=== PATIENT | female | born 1940 | race African-American/Black ===

== ENCOUNTER 2018-09-22 02:29 | Inpatient (IN) | payer BC ==
[~2018-09-22] VITALS: Ht 396.2 cm; Wt 56.0 kg
[2018-09-22 02:48] VITALS: Ht 396.2 cm; Wt 56.0 kg
--- NOTE | 2018-09-22 03:00 | NUR ---
PT BIBA DUE TO C/C INCREASING SOB. PT IS AAOX4. RESP EVEN AND RAPID. PT IS SOB WHEN SPEAKING. PERIODS OF REST IN BETWEEN WORDS. PER MEDIC PT CALLED 911 DUE TO INCREASING SOB X3 DAYS. PT STS SHE WAS GOING TO GO TO HER PCP TOMORROW AM BUT COULD NOT WAIT DUE TO SOB AT HOME TONIGHT. HX COPD. PT STS HAD NO RELIEF WHEN TAKING HER INHALER AT HOME. PT WAS PLACED ON CIPRO FOR SINUS INFECTION AND STS SHE BELIEVES THE MEDICATION MADE HER WORSE. PER MEDIC UPON ARRIVAL TO PTS HOME PT RR 36. DENIES HOME O2 USE. GIVEN ALBUTEROL AND ATROVENT EN ROUTE TO HOSPITAL AND PLACED ON CPAP IN AMBULANCE WITH O2 SAT 99-100%. PT TRANSITIONED TO 4L NC UPON ARRIVAL WITH O2 SAT 99%. CONNECTED TO MONITOR. DR LANDAVERDE AT BEDSIDE FOR MSE.
--- NOTE | 2018-09-22 03:08 | NUR ---
LAB AT BEDSIDE.
--- NOTE | 2018-09-22 03:08 | NUR ---
X-RAY AT BEDSIDE FOR CXR.
[2018-09-22 03:30] LABS: BASOPHIL % 1.2 % (0-2); PLATELET COUNT 225 x10^3mcL (130-400)
[2018-09-22 03:31] LABS: RED CELL DISTRIBUTION WIDTH 15.4 % (11.5-14.5)
[2018-09-22 03:59] LABS: CARBON DIOXIDE 27.7 mmol/L (21-32); CHLORIDE SERUM 101 mmol/L (98-107); CREATININE SERUM 0.7 mg/dL (0.6-1.0); GLUCOSE SERUM 128 mg/dL (74-106); POTASSIUM SERUM 3.7 mmol/L (3.5-5.1); SODIUM SERUM 141 mmol/L (136-145)
[2018-09-22 04:05] LABS: ALBUMIN 3.9 g/dL (3.4-5.0); ALKALINE PHOSPHATASE 78 U/L (46-116); ALT/SGPT 46 U/L (14-59); AST/SGOT 47 U/L (15-37); BILIRUBIN TOTAL 0.5 mg/dL (0.20-1.00); CHOLESTEROL 198 mg/dL (<200); TOTAL PROTEIN, SERUM 7.6 g/dL (6.4-8.2)
--- NOTE | 2018-09-22 04:06 | NUR ---
PT STS "I FEEL SO MUCH BETTER RIGHT NOW. I CAN BREATHE BETTER AND ACTUALLY FINISH MY SENTENCES." AUDIBLE WHEEZING DECREASED. PT REMAINS ON 2L NC WITH 02 SAT 97%. RESP EVEN AND MINORLY LABORED. PT REMAINS TACHYPNIC AT RR 29. WILL CONTINUE TO MONITOR.
[2018-09-22 04:08] LABS: HDL CHOLESTEROL 85 mg/dL (40-60)
--- NOTE | 2018-09-22 06:37 | NUR ---
PT APPEARS TO BE SLEEPING COMFORTABLY. RR 26. REMAINS ON 2L NC, RESP EVEN. AWAITING ADMITTING BED TO TELE. NO BED AVAILABLE UNTIL CHANGE OF SHIFT. WILL CONTINUE TO MONITOR.
[2018-09-22 06:45] LABS: MAGNESIUM 2.3 mg/dL (1.8-2.4); PHOSPHOROUS 5.2 mg/dL (2.5-4.9)
[2018-09-22 06:51] LABS: CHOLESTEROL/HDL RATIO 2.3
[2018-09-22 07:19] LABS: FREE T4 1.12 ng/dL (0.76-1.46); FREE THYROXINE INDEX 3.3 ug/dL (1.4-4.5); T4(THYROXINE) 9.4 ug/dL (4.7-13.3)
--- NOTE | 2018-09-22 07:23 | NUR ---
REPORT CALLED AND GIVEN TO LIANNE KAYE.
[2018-09-22 07:34] LABS: T3 TOTAL 1.05 ng/mL
--- NOTE | 2018-09-22 07:45 | NUR ---
ADMITTED PT FROM ED WITH DX COPD. RECEIVED PT IN BED A/A/OX4. PT WAS VISIBLE SOB AFTER TRANSFER. NOTED PT BECAME SOB WITH INCREASE OF RESPIRATORY AFTER SPEAKING. INSTRUCTED TO ANSWER IN SHORT FRASES. O2 SAT 97% ON O2 AT 2L/MIN VIA NC. PLACED ON TELE #[address] HR 106. DENIES ANY CP/PRESSURE AT THIS TIME. NO EDEMA NOTED. IV TO LFA WITH NS AT 150ML. AMBULATORY WITH ASSISTACE, REPORTS DECREASE IN ACTIVITY TOLERANCE D/T SOB AND WEAKNESS. PT USES A CANE OR WALKER AT HOME. VOIDING FREELY, REPORTS MILD FREQUENCY. ORIENTED TO ROOM AND CALL LIGHT SYSTEM. CALL LIGHT IN REACH NEEDS ATTENDED TO.
[2018-09-22 09:15] VITALS: BP 146/86
[2018-09-22 09:41] VITALS: BP 146/86
[2018-09-22] MEDS ORDERED: ANORO ELLIPTA1 POW IH (10:50)
[2018-09-22] MEDS ORDERED: PROAIR RES117 MCG/Ac IH (10:51)
--- NOTE | 2018-09-22 11:30 | NUR ---
PT RESTING AT THIS TIME. NOT WITH CONT LABORED BREATHING WHEN SPEAKING ASKED IF SHE FELT SOB, PT DENIED AT THIS TIME ANY NEED FOR PRN HHN TX AT THIS TIME. INSTRUCTED TO USE I.S. AT BEDSIDE, AND TO AVOID OVEREXERTING SELF WHILE TALKING OR WITH UNNECESSARY ACTIVITY.
--- NOTE | 2018-09-22 14:34 | NUR ---
PT RESTING AT THIS TIME. DENIES ANY DISCOMFORT. METAL CASKET MAKER AT BEDSIDE FINISHING EXAM. CALL LIGHT IN REACH NEEDS ATTENDED TO.
[2018-09-22 16:01] VITALS: BP 150/87
--- NOTE | 2018-09-22 17:00 | NUR ---
DR. BETANCOURT PAGED AND MADE AWARE OF ECHO RESULTS WITH EF OF 35-40%. MD ALSO MADE AWARE PT HAS HAD A B/P WITH SBP 140-160S SINCE ARRIVAL AND ST ALL SHIFT. STATED SHE WILL REVIEW VITALS AND EXAM.
--- NOTE | 2018-09-22 18:30 | NUR ---
PT RESTING AT THIS TIME. DENIES ANY DISCOMFORT. REMAINS ON O2 AT 2L/MIN VIA NC. WITH SOB ON EXCERTION. SL IVF PER ORDER. CALL LIGHT IN REACH NEEDS ATTENDED TO.
--- NOTE | 2018-09-22 20:12 | NUR ---
PATIENT RECEIVED AWAKE, ALERT, ORIENTED X4 SITTING ON THE SIDE OF THE BED. RESPIRATION SLIGHTLY LABORED, GETS SOB EASILY DURING EXERTION, ON O2 2L PER NASAL CANNULA. SALINE LOCK TO LEFT FOREARM INTACT. LBM 09/22/2018. VOIDING FREELY WITHOUT DIFFICULTY. GENERALIZED WEAKNESS TO EXTREMITIES, LIMITED MOVEMENT TO BUE, USES CANE/WALKER AT HOME. SKIN DRY AND INTACT. DENIES PAIN AT THIS TIME. ON TELE #25. WILL CONTINUE TO MONITOR.
[2018-09-22 20:28] VITALS: BP 130/73
[2018-09-23 05:35] VITALS: BP 108/67
[2018-09-23 06:12] LABS: PLATELET COUNT 226 x10^3mcL (130-400)
--- NOTE | 2018-09-23 06:22 | NUR ---
PATIENT AWAKE, SITTING AT THE SIDE OF THE BED DOING HER MORNING CARE. RESPIRATION EVEN AND UNLABORED, ON ROOM AIR. DENIES PAIN AT THIS TIME. ASSISTED WITH NEEDS. SAFETY OBSERVED. PLACED BED IN THE LOWEST POSITION. PLACED CALL LIGHT WITHIN REACH AT ALL TIMES.
[2018-09-23 06:29] LABS: CALCIUM 9.4 mg/dL (8.5-10.1); CARBON DIOXIDE 28.6 mmol/L (21-32); CHLORIDE SERUM 104 mmol/L (98-107); CREATININE SERUM 0.7 mg/dL (0.6-1.0); GLUCOSE SERUM 139 mg/dL (74-106); MAGNESIUM 2.4 mg/dL (1.8-2.4); PHOSPHOROUS 3.6 mg/dL (2.5-4.9); POTASSIUM SERUM 4.3 mmol/L (3.5-5.1); SODIUM SERUM 142 mmol/L (136-145)
[2018-09-23 06:41] LABS: BASOPHIL % 0 % (0-2)
--- NOTE | 2018-09-23 07:10 | NUR ---
SEEN IN BED AWAKE, ALERT, ORIENTED X4. WATCHING TV. DENIES PAIN. NSR ON TELE#7 MONITOR. DIMINISHED LUNG SOUND, ON O2 2LPM N/C. GEN BODY WEAKNESS. STATED ABLE TO USE BSC BY HERSELF. S/L TO LFA INTACT/PATENT. PLAN OF CARE DISCUSSED. CALL LIGHT PLACED WITHIN EASY REACH. SIDERAILS UP X2.
[2018-09-23 08:10] VITALS: BP 116/62
[2018-09-23 12:16] VITALS: BP 171/72
[2018-09-23 17:18] VITALS: BP 143/69
--- NOTE | 2018-09-23 18:22 | NUR ---
NO ANY DISTRESS THRROUGHOUT SHIFT. VSS. DENIES PAIN. O2 2LPM N/C MAINTAINED. ALL DUE MEDS GIVEN. BRP WITH STEADY GAIT, REFUSED BSC OFFERRED. S/L TO LFA INTACT AND PATENT.
--- NOTE | 2018-09-23 19:10 | NUR ---
CARE ASSUMED FROM OUTGOING RN. PT RESTING COMFORTABLY IN BED. NO ACUTE DISTRESS NOTED. EVEN AND UNLABORED RESPIRATIONS ON 2LNC. ON TELE# [address] 98 WITH DEPRESSED TWAVE, OCC PVCS. IVL INTACT. DENIES ANY PAIN AT THIS TIME. BED IN LOWEST POSITION. SIDE RAILS UPX2. CALL LIGHT WITHIN REACH. WILL CONTINUE TO MONITOR.
[2018-09-23 21:01] VITALS: BP 138/75
--- NOTE | 2018-09-24 01:13 | NUR ---
PT RESTING IN BED COMFORTABLY. NO ACUTE DISTRESS NOTED. EVEN AND UNLABORED RESPIRATIONS ON 2LNC. IVL PATENT AND INTACT. ON TELE# [address] 110 WITH SLIGHTLY DEPRESSED TWAVE, OCC PVCS, PACS. URINE COLLECTED FOR UA,UDS,UCX. PT ABLE TO AMBULATE WITH SLOW STEADY GAIT TO BATHROOM. BED IN LOWEST POSITION. SIDE RAILS UPX2. CALL LIGHT WITHIN REACH. WILL CONTINUE TO MONITOR.
[2018-09-24 01:51] LABS: UA SPECIFIC GRAVITY <=1.005 (1.005-1.035); microscopic required? YES; urine erythrocyte TRACE (NEGATIVE)
[2018-09-24 02:06] LABS: AMPHETAMINE QUAL UR NONE DETECTED (See below)
[2018-09-24 06:08] VITALS: BP 143/78
--- NOTE | 2018-09-24 06:25 | NUR ---
PT SLEPT COMFORTABLY IN INTERVALS THROUGHOUT THE SHIFT. ALL NEEDS TENDED TO AND MET. ALL SCHEDULED MEDICATIONS GIVEN. EVEN AND UNLABORED RESPIRATIONS ON 2LNC. PT C/O SOB AFTER AMBULATING TO THE BATHROOM. ON TELE# [address] 90 WITH OCC PACS, PVCS. IVL PATENT AND INTACT. NO C/O PAIN. BED IN LOWEST POSITION. SIDE RAILS UPX2. CALL LIGHT WITHIN REACH. WILL ENDORSE TO ONCOMING SHIFT.
[2018-09-24 06:46] LABS: PLATELET COUNT 228 x10^3mcL (130-400)
[2018-09-24 06:54] LABS: CALCIUM 9.4 mg/dL (8.5-10.1); CARBON DIOXIDE 30.5 mmol/L (21-32); CHLORIDE SERUM 102 mmol/L (98-107); CREATININE SERUM 0.7 mg/dL (0.6-1.0); GLUCOSE SERUM 121 mg/dL (74-106); POTASSIUM SERUM 3.7 mmol/L (3.5-5.1); SODIUM SERUM 143 mmol/L (136-145)
[2018-09-24 06:55] LABS: BASOPHIL % 0 % (0-2); RED CELL DISTRIBUTION WIDTH 16.4 % (11.5-14.5)
--- NOTE | 2018-09-24 07:10 | NUR ---
PHYSICAL THERAPY NOTE PATIENT DEMONTRATED IND ON BED MOB, TRANSFER AND GAIT. GOAL MET. D/C FROM PHYSICAL THERAPY. END TO NSG FOR ADL AND MOBILITY NEEDS
--- NOTE | 2018-09-24 07:30 | NUR ---
RECEIVED IN NO RESP. DISTRESS. AWAKE ALERT AND ORIENTED. NO C/O PAIN OR DISCOMFORT. HL TO LFA PATENT. PT DENIES PAIN OR DISCOMFORT. CALL LIGHT WITHIN REACH. WILL CONTINUE WITH PLAN OF CARE.
[2018-09-24 09:10] VITALS: BP 160/90
--- NOTE | 2018-09-24 10:55 | NUR ---
HOME O2 EVAL DONE AND NURSE TODD NOTIFIED.
--- NOTE | 2018-09-24 12:10 | NUR ---
TX NOT GIVEN DUE TO FARMER DIVERSIFIED CROPS SPEAKING WITH PT. 1303 PT EATING.
[2018-09-24 12:13] VITALS: BP 166/93
[2018-09-24 17:06] VITALS: BP 146/76
--- NOTE | 2018-09-24 18:28 | NUR ---
REMAINS IN NO DISTRESS, AWAKE AND ALERT. NO CHANGES IN VS. NO C/O PAIN OR DISCOMFORT. HL PATENT. CALL LIGHT WITHIN REACH. WILL BE ENDORSED TO INCOMING SHIFT.
[2018-09-24 19:10] VITALS: BP 143/69
--- NOTE | 2018-09-24 19:44 | NUR ---
RECEIVED PT FROM PREVIOUS SHIFT. PT A/OX4. DENIES PAIN. DENIES SOB ON 2LNC. IV PATENT AND SALINE LOCKED. CALL LIGHT WITHIN REACH, BED IN LOW POSITION. WILL CONTINUE TO MONITOR.
--- NOTE | 2018-09-25 02:42 | NUR ---
PT RESTING IN NO ACUTE DISTRESS. RR EVEN AND UNLABORED. CALL LIGHT WITHIN REACH, BED IN LOW POSITION. WILL CONTINUE TO MONITOR.
[2018-09-25 06:08] VITALS: BP 154/78
[2018-09-25 06:22] LABS: PLATELET COUNT 226 x10^3mcL (130-400)
[2018-09-25 06:25] LABS: BASOPHIL % 0 % (0-2); RED CELL DISTRIBUTION WIDTH 16.5 % (11.5-14.5)
[2018-09-25 06:35] LABS: CALCIUM 9.1 mg/dL (8.5-10.1); CARBON DIOXIDE 32.6 mmol/L (21-32); CHLORIDE SERUM 104 mmol/L (98-107); CREATININE SERUM 0.8 mg/dL (0.6-1.0); GLUCOSE SERUM 104 mg/dL (74-106); POTASSIUM SERUM 3.9 mmol/L (3.5-5.1); SODIUM SERUM 143 mmol/L (136-145)
--- NOTE | 2018-09-25 07:12 | NUR ---
RECIEVED REPORT FROM STACEY ABDALLA. PATIENT SLEEPING COMFORTABLY IN BED. NO NEEDS IDENTIFIED. IV TO LFA IS PATENT AND INTACT. NO REDNESS OR PAIN. PT ON O2 2L NC. NO DISTRESS NOTED. PT IS MEDSURG. NO INDICATION OF CHEST PAIN. ALL QUESTIONS AND CONCERNS ADDRESSED.
[2018-09-25 08:43] VITALS: BP 126/63
--- NOTE | 2018-09-25 08:54 | NUR ---
IN TO ADMINISTER MEDICATION (SEE eMAR). PT REPORTS AVOIDANCE OF NSAIDS AND IS REFUSING TO TAKE ASPIRIN 81 MG. PHOTOGRAPHER ASSISTANT PATRICIA NOTIFIED.
--- NOTE | 2018-09-25 11:18 | NUR ---
IN TO SEE PATIENT AND ASSESS NEEDS. PATIENT SITTING COMFORTABLY IN CHAIR. ALL NEEDS MET. NOTIFIED PATIENT THAT ASPIRIN WILL CONTINUE TO BE OFFERED PER CROP CONSULTANT PATRICIA AND PATIENT MAY REFUSE IF SHE SO DESIRES.
--- NOTE | 2018-09-25 12:08 | NUR ---
PATIENT AMBULATING IN THE [facility] WITH RESPIRATORY THERAPY.
--- NOTE | 2018-09-25 12:36 | NUR ---
IN TO SEE PATIENT AND ADMINISTER MEDICATION (SEE eMAR). PATIENT SITTING COMFORTABLY AT EDGE OF BED EATING LUNCH. ALL NEEDS MET. PATIENT ALSO REPORTS SOFT BM X 2 EARLIER.
--- NOTE | 2018-09-25 16:06 | NUR ---
PATIENT AMBULATING IN THE [facility] WITH RESPIRATORY THERAPY.
[2018-09-25 16:55] VITALS: BP 135/71
--- NOTE | 2018-09-25 18:07 | NUR ---
DR FROST IN TO SEE AND ASSESS PATIENT. DISCUSSED INCREASE IN ACTIVITY TOLERANCE. NO CHANGE FROM A CARDIAC STANDPOINT. PT VERBALIZED UNDERSTANDING AND ALL QUESTIONS AND CONCERNS WERE ADDRESSED.
--- NOTE | 2018-09-25 19:18 | NUR ---
REPORT GIVEN TO KHUSHBOO ABDALLA. PATIENT RESTING COMFORTABLY IN BED WITH ALL NEEDS MET. ALL QUESTIONS AND CONCERNS ADDRESSED. ALL CARES ENDORSED.
--- NOTE | 2018-09-25 19:36 | NUR ---
SHIFT REASSESSMENT DONE.PATIENT ALERT AND ORIENTED.BREATHING EASY .GEN WEAKNESS.HEPLOCK LFA.SKIN INTACT.HEPARIN SQ.USES CANE AT HOME.FALL PRECAUTION.VOIDING.NO PAIN AT THIS TIME.
--- NOTE | 2018-09-25 21:14 | NUR ---
ALL PM MEDS GIVEN,SWALLOWS WELL.
[2018-09-25 21:58] VITALS: BP 152/77
--- NOTE | 2018-09-26 02:00 | NUR ---
PATIENT SLEEPING COMFORTABLY.NO RESP DISTRESS.CALL LIGHT IN REACH.
--- NOTE | 2018-09-26 06:16 | NUR ---
PATIENT SLEEPING COMFORTABLY,NO RESP DISTRESS.AM MEDS GIVEN,NO INCIDENT.WILL CONTINUE PLAN OF CARE.
[2018-09-26 06:43] VITALS: BP 147/80
--- NOTE | 2018-09-26 07:20 | NUR ---
RECIEVED PT SITTING UP IN BED WITH NO S/S OF DISTRESS OR SOB. A/OX4 WITH NO BARKSDALE OR DIZZINESS. IV INTACT AND PATENT TO LFA, NO REDNESS OR INFLAMMATION. SAFETY PRECAUTIONS IN PLACE, CALL IGHT WITHIN REACH, WILL MONITOR.
[2018-09-26 07:34] LABS: CALCIUM 9.4 mg/dL (8.5-10.1); CHLORIDE SERUM 102 mmol/L (98-107); CREATININE SERUM 0.6 mg/dL (0.6-1.0); GLUCOSE SERUM 113 mg/dL (74-106); POTASSIUM SERUM 5.5 mmol/L (3.5-5.1); SODIUM SERUM 142 mmol/L (136-145)
[2018-09-26 08:42] LABS: BASOPHIL % 0.1 % (0-2); PLATELET COUNT 235 x10^3mcL (130-400); RED CELL DISTRIBUTION WIDTH 16.2 % (11.5-14.5)
[2018-09-26 09:07] VITALS: BP 147/80
--- NOTE | 2018-09-26 10:30 | NUR ---
PT RESING COMFORTABLY IN BED WITH NO C/O PAIN, DISTRESS, OR SOB. SAFETY PRECAUTUIONS IN PLACE, CALL LIGHT WITHIN REACH, WILL MONITOR.
--- NOTE | 2018-09-26 14:00 | NUR ---
PT STILL RESING COMFORTABLY IN BED WITH NO C/O PAIN, DISTRESS, OR SOB. SAFETY PRECAUTUIONS IN PLACE, CALL LIGHT WITHIN REACH, WILL CONTINUE TO MONITOR.
[2018-09-26 17:35] VITALS: BP 127/77
--- NOTE | 2018-09-26 18:30 | NUR ---
PT STABLE AT THIS TIME WITH NO C/O PAIN, DISTRESS, OR SOB. TOLERATED ALL CARES WELL. VS WNL. IV INTACT AND PATENT WITH NO REDNESS OR INFLAMMATION. SAFETY PRECAUTIONS IN PLACE, CALL LIGHT WITHIN REACH, WILL ENDORSE TO NIGHT NURSE.
--- NOTE | 2018-09-26 19:30 | NUR ---
PT IS A/O x4. MED SURG. DENIES ANY CHEST PAIN OR PRESSURE. PULSES ARE PRESENT. NO EDEMA NOTED. LUNGS CLEAR IN ALL FEILDS. ON RA, DENIES ANY SOB. EQUAL CHEST RISE AND FALL. NO SIGN OR RESP DISTRESS. BOWEL SOUNDS PRESENT x4. DENIES ANY ABD PAIN OR DISTRESS. VOIDS FREELY. SKIN WARM AND INTACT. DENIES ANY PAIN AT THIS TIME. SALINE LOCKED ON LFA, INTACT AND PATENT. BED IS AT LOWEST SETTING. CALL LIGHT WITHIN REACH. WILL CONTINUE TO MONITOR.
[2018-09-26 22:10] VITALS: BP 145/80
--- NOTE | 2018-09-27 00:08 | NUR ---
PT IS RESTING IN BED. DENIES ANY PAIN OR DISTRESS. BREATHING EVEN AND UNLBORED. BED IS AT LOWEST SETTING. CALL LIGHT WITHIN REACH. WILL CONTINUE TO MONTIOR.
[2018-09-27 06:06] VITALS: BP 157/85
--- NOTE | 2018-09-27 06:38 | NUR ---
PT IS RESTING IN BED. DENIES ANY PAIN OR DISTRESS. IV INTACT AND PATENT. NO SIGN OF DISTRESS NOTED. NO ACUTE EVENT OCCURED AT NIGHT. BED IS AT LOWEST SETTING. CALL LIGHT WITHIN REACH. WILL ENDORSE TO AM NURSE.
--- NOTE | 2018-09-27 07:10 | NUR ---
RECEIVED BEDSIDE REPORT FROM PATHOLOGY SECRETARY/TRANSCRIPTIONIST NURSE AT THIS TIME. PATIENT RESTING COMFORTABLY IN BED. NO APPARENT DISTRESS OR DISCOMFORT NOTED. BREATHING EVEN AND UNLABORED. PATIENT C/O MILD SHORTNESS OF BREATH AND NON PRODUCTIVE COUGH. PATIENT DENIES CHEST PAIN/PRESSURE AT THIS TIME. IV PATENT AND INTACT. ALL QUESTIONS AND CONCERNS ADDRESSED. ALL NEEDS ATTENDED TO. WILL CONTINUE TO MONITOR
[2018-09-27 07:28] LABS: CALCIUM 8.4 mg/dL (8.5-10.1); CARBON DIOXIDE 33.1 mmol/L (21-32); CHLORIDE SERUM 102 mmol/L (98-107); CREATININE SERUM 0.7 mg/dL (0.6-1.0); GLUCOSE SERUM 118 mg/dL (74-106); POTASSIUM SERUM 4.2 mmol/L (3.5-5.1); SODIUM SERUM 142 mmol/L (136-145)
[2018-09-27 07:44] LABS: PLATELET COUNT 234 x10^3mcL (130-400)
[2018-09-27 07:55] LABS: BASOPHIL % 0 % (0-2); RED CELL DISTRIBUTION WIDTH 16.5 % (11.5-14.5)
[2018-09-27 09:01] VITALS: BP 144/69
--- NOTE | 2018-09-27 10:20 | NUR ---
MORNING MEDICATIONS ADMINISTERED. PATIENT TOLERATED MEDICATIONS WELL. NO ADVERSE EFFECTS NOTED. ALL NEEDS ATTENDED TO. WILL CONTINUE TO MONITOR
[2018-09-27] MEDS ORDERED: LEVAQUIN750 MG PO (11:16)
[2018-09-27] MEDS ORDERED: METHYLPREDNISONE PO (11:21)
--- NOTE | 2018-09-27 11:44 | NUR ---
Intervention/RDN Recommendation(s): 1. Recommend continue on cardiac diet as tolerated.
--- NOTE | 2018-09-27 11:44 | NUR ---
Initial Nutrition Assessment- Dx: difficulty breathing PMHx: COPD PSHx: cataract removal, lt hip replacement, rt rotation cuff surgery, bunionectomies- both feet, tubal ligation Labs: Meds: aspirin, Colace, coreg, Lasix, Levaquin, Lipitor, norco, solu-medrol, Tylenol, Zestril, zofran Diet: cardiac PO Intakes: (09/25) D: 90%, L: 50%, B: 100%; (09/24) B: 30%; (09/23) D: 100%, B: 60%; overall av%. This provides ~1480 kcal and 82 gm protein. With current intake pattern, estimated nutrition needs are adequately met. Ht: 175.26cm/5'9 per Pt report Wt: 56 kg/123 pounds BMI: 18.2 kg/m2, underweight for age IBW: 145 pounds/66 kg %IBW: 83% UBW: 113-120# Age: 78 Food Allergies: NKFA Skin: Baltazar 19 Edema: None GI: Last BM 09/24/18 x 1 Pt admitted with dx: dyspnea 2/2 COPD exacerbation, hyperphosphatemia 2/2 dehydration, DVT prophylaxis. RDN visited with Pt. Pt awake, sitting up in bed, in good spirits. She reports having been very well cared for during her stay and is pleased with the service. She has enjoyed the food very much. Pt reports being 5 foot 9 inches tall and having a UBW of 113-120#. She states that she has always been between that weight for as long as she can remember. She verbalizes understanding that she has always been underweight and tries to eat more due to that fact. Her PCP has also been concerned regarding her underweight status especially due to dx of COPD. However, she has always weighed no more than 120#. Her PCP gets worried when she gets down to 118#, but she just tries to eat more. She is taking supplements at home. She drinks protein shakes 2-3x/day and has protein bars on occasion as she does not like the taste of the bars as much as she enjoys the shakes. She says she will be making it a point to always take a protein shake or bar to help her maintain her weight. Pt declined further nutrition education at this time but is aware that she may request to speak with an RDN if a question comes up. Problem with: N: no V: no D: no C:no Problems with: Chewing: no Swallowing: no Current appetite: good, improved Recent wt changes: none Vitamin/Supplement: protein shakes 2-3x/day, protein bars Special Diet at Home: none Physical activity: Pt uses cane to ambulate outside the home due to arthritis (per H&P) Nutrition education given (specify specific nutrition education and handout given): N/A Food-drug interactions? N/A Education given? N/A Estimated Nutritional Needs Based on actual body weight of 56 kg. Energy: 5214-7643 kcal/d (25-30 kcal/kg for older adult maintenance) Protein: 56-76 gm/d (1-1.2 gm/kg for older adult maintenance) Fluid: 7974-1059 mL/d (1 mL/kcal) or per MD. Nutrition Diagnosis 1. Underweight for age related to pathophysiological causes as evidenced by BMI < 18.5 kg/m2 (Pt with BMI of 18.2 kg/m2). Intervention/RDN Recommendation(s): 1. Recommend continue on cardiac diet as tolerated. Monitor/Evaluate Goal: Intake via PO intakes to meet at least 75% of estimated needs with acceptable tolerance within 5-7 days. Monitor: PO intakes and/or nutrition support tolerance, Labs, GI function, Skin integrity, Weights. F/U in 5-7days as low risk (10/02-)
[2018-09-27 12:35] VITALS: BP 144/69
--- NOTE | 2018-09-27 12:55 | NUR ---
PATIENT STABLE TO BE DISCHARGED TO HOME. DISCHARGE INSTRUCTIONS GIVEN WELL EDUCATION. INSTRUCTED PATIENT ABOUT FOLLOW UP APPOINTMENTS. PATIENT VERBALIZES UNDERSTANDING. IV REMOVED WITH CATH INTACT. ID BANDS REMOVED. ALL BELONGINGS WITH PATIENT. ALL QUESTIONS AND CONCERNS ADDRESSED. ALL NEEDS ATTENDED TO. PATIENT TO BE ESCORTED DOWN TO THE LOBBY AT THIS TIME
== END 2018-09-27 13:31 | disposition home or self-care (01) | DRG 291 ==
LOC: ED 02:29 → DU 04:58 → MU 04:58 → DU 07:37 → MU 09-24 15:57
PROVIDERS: Emergency Medicine; Internal Medicine; ADMIT Internal Medicine
DX: I11.0 Hypertensive heart disease with heart failure (principal); J96.01 Acute respiratory failure with hypoxia; J44.1 Chronic obstructive pulmonary disease with (acute) exacerbation; I50.23 Acute on chronic systolic (congestive) heart failure; I42.9 Cardiomyopathy, unspecified; E87.5 Hyperkalemia; E83.39 Other disorders of phosphorus metabolism; E86.0 Dehydration; Z87.891 Personal history of nicotine dependence; Z68.21 Body mass index [BMI] 21.0-21.9, adult
CPT/HCPCS: 36600; 83880; 84439; 97116-GP; 97530-GP; G0378; J0456; J1644; J1940; J1956; J2920; J2930; J7030; J7050; J7620; J7626; Q0092